=== PATIENT | male | born 1970 | race Caucasian/White ===

== ENCOUNTER 2016-08-06 22:38 | Emergency (ER) | payer OTHER ==
[~2016-08-06] VITALS: Ht 172.7 cm; Wt 59.0 kg
[~2016-08-06 22:38] MED LIST: AMBIEN10 MG PO; COGENTIN1 MG PO; KEPPRA500 MG PO; NEXIUM40 MG PO; TRAZODONE HCL100 MG PO
[2016-08-06 23:02] LABS: HEMATOCRIT 41.7 % (38.0-50.0); MCH 30.9 PG (29.0-34.0); MCHC 34.8 G/DL (30.0-36.0); MCV 88.7 FL (86-99); MEAN PLAT.VOLUME 9.1 uM^3 (9.0-12.4); PLATELET COUNT 207 K/uL (156-360); RBC DIS.WIDTH-CV 12.9 % (11.8-14.6); RBC DIS.WIDTH-SD 40.9 % (39-53); WHITE BLOOD COUNT 7.1 K/uL (4.1-10.2)
[2016-08-06 23:10] LABS: CHLORIDE 103 mEq/L (99-109); POTASSIUM 3.5 mEq/L (3.7-5.4); SODIUM 141 mEq/L (136-147)
[2016-08-06 23:12] LABS: GLUCOSE 93 mg/dL (70-99)
[2016-08-06 23:13] LABS: ANION GAP 14 MEQ/L (2-14)
[2016-08-06 23:15] LABS: SERUM ETHYL ALCOHOL 299 mg/dL
[2016-08-06 23:16] LABS: GFR ESTIMATE (CALCULATED) > 59 mL/min/
[2016-08-06 23:17] LABS: UREA NITROGEN (BUN) 16 mg/dL (9-23)
[2016-08-07 00:23] LABS: AMPHETAMINE NEGATIVE (500 ng/mL); BARBITURATES NEGATIVE (200 ng/mL); BENZODIAZEPINES NEGATIVE (150 ng/mL); COCAINE NEGATIVE (150 ng/mL); INTERNAL CONTROLS VALID? YES; METHADONE NEGATIVE (200 ng/mL); METHAMPHETAMINE NEGATIVE (500 ng/mL); OPIATES (MORPHINE) NEGATIVE (100 ng/mL); OXYCODONE NEGATIVE (100 ng/mL); PHENCYCLIDINE NEGATIVE (25 ng/mL); PROPOXYPHENE NEGATIVE (300 ng/mL); THC CANNABINOIDS NEGATIVE (50 ng/mL); TRICYCLIC ANTIDEPRESSANTS NEGATIVE (300 ng/mL)
[2016-08-07 09:02] VITALS: BP 110/70
== END 2016-08-07 09:03 | disposition home or self-care (01) ==
LOC: EME 22:38
PROVIDERS: Emergency Medicine
DX: F10.129 Alcohol abuse with intoxication, unspecified (principal); F32.9 Major depressive disorder, single episode, unspecified; Y90.8 Blood alcohol level of 240 mg/100 ml or more; Z04.6 Encounter for general psychiatric examination, requested by authority
CPT/HCPCS: 80048; 85027; 90837; 99281; 99284; G0480

== ENCOUNTER → 2017-01-05 | Emergency (ER) | payer OTHER | END | disposition left against medical advice (07) | LOC: EME 23:36 | DX: F10.10 Alcohol abuse, uncomplicated (principal); Z53.21 Procedure and treatment not carried out due to patient leaving prior to being seen by health care provider ==

== ENCOUNTER 2017-01-06 16:49 | Emergency (ER) | payer OTHER ==
[~2017-01-06] VITALS: Ht 170.2 cm; Wt 55.0 kg
[2017-01-06 17:14] LABS: HEMATOCRIT 43.5 % (38.0-50.0); MCH 31.6 PG (29.0-34.0); MCHC 33.1 G/DL (30.0-36.0); MCV 95.6 FL (86-99); MEAN PLAT.VOLUME 9.6 uM^3 (9.0-12.4); PLATELET COUNT 121 K/uL (156-360); RED BLOOD COUNT 4.55 M/uL (4.00-5.50); WHITE BLOOD COUNT 4.6 K/uL (4.1-10.2)
[2017-01-06 17:24] LABS: CHLORIDE 99 mEq/L (99-109); POTASSIUM 4.1 mEq/L (3.7-5.4); SODIUM 142 mEq/L (136-147)
[2017-01-06 17:25] LABS: GLUCOSE 58 mg/dL (70-99)
[2017-01-06 17:27] LABS: ANION GAP 28 MEQ/L (2-14)
[2017-01-06 17:28] LABS: SERUM ETHYL ALCOHOL 390 mg/dL
[2017-01-06 17:29] LABS: GFR ESTIMATE (CALCULATED) > 59 mL/min/
[2017-01-06 17:30] LABS: UREA NITROGEN (BUN) 18 mg/dL (9-23)
[2017-01-06 20:40] VITALS: BP 128/90
== END 2017-01-06 22:20 | disposition left against medical advice (07) ==
LOC: EME 16:49
DX: F10.239 Alcohol dependence with withdrawal, unspecified (principal); Z53.21 Procedure and treatment not carried out due to patient leaving prior to being seen by health care provider
CPT/HCPCS: 80048; 85027; G0480

== ENCOUNTER 2017-02-05 16:25 | Emergency (ER) | payer OTHER ==
[~2017-02-05] VITALS: Ht 170.2 cm; Wt 43.2 kg
[2017-02-05 17:10] LABS: HEMATOCRIT 42.1 % (38.0-50.0); MCH 31.9 PG (29.0-34.0); MCHC 33.7 G/DL (30.0-36.0); MCV 94.6 FL (86-99); MEAN PLAT.VOLUME 9.8 uM^3 (9.0-12.4); PLATELET COUNT 95 K/uL (156-360); RBC DIS.WIDTH-CV 13.2 % (11.8-14.6); RBC DIS.WIDTH-SD 46.5 % (39-53); RED BLOOD COUNT 4.45 M/uL (4.00-5.50); WHITE BLOOD COUNT 13.1 K/uL (4.1-10.2)
[2017-02-05 17:22] LABS: CHLORIDE 94 mEq/L (99-109); POTASSIUM 4.1 mEq/L (3.7-5.4); SODIUM 137 mEq/L (136-147)
[2017-02-05 17:24] LABS: GLUCOSE 113 mg/dL (70-99)
[2017-02-05 17:26] LABS: ANION GAP 35 MEQ/L (2-14)
[2017-02-05 17:27] LABS: SERUM ETHYL ALCOHOL 278 mg/dL
[2017-02-05 17:28] LABS: ALKALINE PHOSPHATASE 91 IU/L (3-129); GFR ESTIMATE (CALCULATED) > 59 mL/min/
[2017-02-05 17:29] LABS: TROP-I INTERPRETATION NEGATIVE; TROPONIN-I < 0.01 ng/mL (0.0-0.30); UREA NITROGEN (BUN) 15 mg/dL (9-23)
[2017-02-05 17:31] LABS: LIPASE 79 U/L (1.0-51.0)
[2017-02-05 19:04] LABS: SALICYLATE < 1.0 MG/DL (15-30)
[2017-02-05 21:42] LABS: ADD MIUA? YES; BILIRUBIN NEGATIVE; BLOOD SMALL; COLOR YELLOW ((YELLOW)); GLUCOSE (STRIP) NEGATIVE; KETONES 80; LEUKOCYTES NEGATIVE; NITRITE NEGATIVE; PROTEIN (STRIP) 100; SPECIFIC GRAVITY 1.042 (1.000-1.030); UROBILINOGEN 0.2 MG/DL (0.2-1.0)
[2017-02-05 21:47] LABS: BACTERIA NONE SEEN /HPF; EPITHELIAL CELLS RARE /HPF; MUCUS NONE SEEN /LPF; RED BLOOD CELLS 0-5 /HPF (0-5); UCUL ADDED? NO; WHITE BLOOD CELLS 0-5 /HPF (0-5)
[2017-02-05 23:09] LABS: AMPHETAMINE NEGATIVE (500 ng/mL); BARBITURATES NEGATIVE (200 ng/mL); BENZODIAZEPINES NEGATIVE (150 ng/mL); COCAINE NEGATIVE (150 ng/mL); INTERNAL CONTROLS VALID? YES; METHADONE NEGATIVE (200 ng/mL); METHAMPHETAMINE NEGATIVE (500 ng/mL); OPIATES (MORPHINE) NEGATIVE (100 ng/mL); OXYCODONE NEGATIVE (100 ng/mL); PHENCYCLIDINE NEGATIVE (25 ng/mL); PROPOXYPHENE NEGATIVE (300 ng/mL); THC CANNABINOIDS NEGATIVE (50 ng/mL); TRICYCLIC ANTIDEPRESSANTS NEGATIVE (300 ng/mL)
[2017-02-06] MEDS ORDERED: PHENOBARBITAL64.8 MG PO
[2017-02-06] MEDS ORDERED: HALDOL5 MG PO (00:01)
[2017-02-06] MEDS ORDERED: DIAZEPAM5 MG PO (00:02)
[2017-02-06] MEDS ORDERED: FLUOXETINE HCL40 MG PO (00:02)
[2017-02-06] MEDS ORDERED: HYDROXYZINE PAM50 MG PO (00:03)
[2017-02-06] MEDS ORDERED: NALTREXONE HCL50 MG PO (00:03)
[2017-02-06] MEDS ORDERED: GABAPENTIN400 MG PO (00:04)
[2017-02-06] MEDS ORDERED: DESYREL100 MG PO (00:04)
[2017-02-06] MEDS ORDERED: HYDROXYZINE PAM25 MG PO (00:04)
[2017-02-06] MEDS ORDERED: LO-DOSE ASPIRIN81 M2 PO (00:06)
[2017-02-06] MEDS ORDERED: B-COMPLEX-VITA1 EACH PO (00:20)
[2017-02-06] MEDS ORDERED: MEN'S MULTI-VI1 EACH PO (00:20)
[2017-02-06] MEDS ORDERED: FLAGYL500 MG PO (00:43)
[2017-02-06] MEDS ORDERED: CIPRO500 MG PO (00:43)
[2017-02-06 01:15] VITALS: BP 117/75
== END 2017-02-06 02:02 | disposition left against medical advice (07) ==
LOC: EME → EDBD 16:25 → EME 16:25
PROVIDERS: Emergency Medicine
DX: E87.2 Acidosis (principal); K52.9 Noninfective gastroenteritis and colitis, unspecified; F10.229 Alcohol dependence with intoxication, unspecified; Y90.8 Blood alcohol level of 240 mg/100 ml or more; F32.9 Major depressive disorder, single episode, unspecified; R45.851 Suicidal ideations; K21.9 Gastro-esophageal reflux disease without esophagitis; F17.200 Nicotine dependence, unspecified, uncomplicated; Z53.20 Procedure and treatment not carried out because of patient's decision for unspecified reasons; Z79.82 Long term (current) use of aspirin
CPT/HCPCS: 71010; 74177; 80053; 81003; 82010; 82140; 83605; 83690; 84484; 85027; 87040; 90839; 93005; 99281; 99285; G0480; J0744; J1630; J2405; J7030; S0028; S0030

== ENCOUNTER 2017-03-22 15:39 | Emergency (ER) | payer OTHER ==
[~2017-03-22] VITALS: Ht 170.2 cm; Wt 50.3 kg
[~2017-03-22 15:39] MED LIST changes: +B-COMPLEX-VITA1 EACH PO; +CIPRO500 MG PO; +DESYREL100 MG PO; +DIAZEPAM5 MG PO; +FLAGYL500 MG PO; +FLUOXETINE HCL40 MG PO; +GABAPENTIN400 MG PO; +HALDOL5 MG PO; +HYDROXYZINE PAM25 MG PO; +HYDROXYZINE PAM50 MG PO; +LO-DOSE ASPIRIN81 M2 PO; +MEN'S MULTI-VI1 EACH PO; +NALTREXONE HCL50 MG PO; +PHENOBARBITAL64.8 MG PO
[2017-03-22 15:53] VITALS: BP 118/90
== END 2017-03-22 18:12 | disposition left against medical advice (07) ==
LOC: EME 15:39
DX: F32.9 Major depressive disorder, single episode, unspecified (principal); Z53.21 Procedure and treatment not carried out due to patient leaving prior to being seen by health care provider
CPT/HCPCS: 80048; 85027; G0480

== ENCOUNTER 2017-03-23 14:52 | Emergency (ER) | payer OTHER ==
[~2017-03-23] VITALS: Ht 170.2 cm; Wt 50.0 kg
[2017-03-23 15:18] LABS: HEMATOCRIT 38.8 % (38.0-50.0); MCH 32.5 PG (29.0-34.0); MCHC 33.5 G/DL (30.0-36.0); MEAN PLAT.VOLUME 9.2 uM^3 (9.0-12.4); PLATELET COUNT 122 K/uL (156-360); RBC DIS.WIDTH-CV 13.7 % (11.8-14.6); RBC DIS.WIDTH-SD 49.4 % (39-53); WHITE BLOOD COUNT 4.7 K/uL (4.1-10.2)
[2017-03-23 15:26] LABS: CHLORIDE 106 mEq/L (99-109); POTASSIUM 4.1 mEq/L (3.7-5.4); SODIUM 146 mEq/L (136-147)
[2017-03-23 15:29] LABS: GLUCOSE 92 mg/dL (70-99)
[2017-03-23 15:30] LABS: ANION GAP 11 MEQ/L (2-14); TOTAL BILIRUBIN 0.6 mg/dL (0.0-1.0)
[2017-03-23 15:31] LABS: SERUM ETHYL ALCOHOL 404 mg/dL
[2017-03-23 15:32] LABS: ALKALINE PHOSPHATASE 62 IU/L (3-129); GFR ESTIMATE (CALCULATED) > 59 mL/min/
[2017-03-23 15:33] LABS: UREA NITROGEN (BUN) 8 mg/dL (9-23)
[2017-03-23 15:54] LABS: ADD MIUA? NO; BILIRUBIN NEGATIVE; BLOOD NEGATIVE; COLOR YELLOW ((YELLOW)); GLUCOSE (STRIP) NEGATIVE; KETONES NEGATIVE; LEUKOCYTES NEGATIVE; NITRITE NEGATIVE; PROTEIN (STRIP) NEGATIVE; SPECIFIC GRAVITY 1.011 (1.000-1.030); UROBILINOGEN 0.2 MG/DL (0.2-1.0)
[2017-03-23 16:51] LABS: AMPHETAMINE NEGATIVE (500 ng/mL); BARBITURATES NEGATIVE (200 ng/mL); BENZODIAZEPINES NEGATIVE (150 ng/mL); COCAINE NEGATIVE (150 ng/mL); INTERNAL CONTROLS VALID? YES; METHADONE NEGATIVE (200 ng/mL); METHAMPHETAMINE NEGATIVE (500 ng/mL); OPIATES (MORPHINE) NEGATIVE (100 ng/mL); OXYCODONE NEGATIVE (100 ng/mL); PHENCYCLIDINE NEGATIVE (25 ng/mL); PROPOXYPHENE NEGATIVE (300 ng/mL); THC CANNABINOIDS NEGATIVE (50 ng/mL); TRICYCLIC ANTIDEPRESSANTS NEGATIVE (300 ng/mL)
[2017-03-24 04:25] VITALS: BP 127/90
== END 2017-03-24 04:27 | disposition home or self-care (01) ==
LOC: EME 14:52
PROVIDERS: Emergency Medicine
DX: F32.9 Major depressive disorder, single episode, unspecified (principal); F10.129 Alcohol abuse with intoxication, unspecified; Y90.8 Blood alcohol level of 240 mg/100 ml or more; R45.851 Suicidal ideations; Z04.6 Encounter for general psychiatric examination, requested by authority; K21.9 Gastro-esophageal reflux disease without esophagitis; F17.200 Nicotine dependence, unspecified, uncomplicated; Z88.0 Allergy status to penicillin
CPT/HCPCS: 80053; 81003; 85027; 90837; 99281; 99285; G0480; Q0177